=== PATIENT | male | born 1980 | race Caucasian/White ===

== ENCOUNTER 2018-03-16 17:55 | Emergency (ER) | payer OTHER ==
[2018-03-16] MEDS ORDERED: IBUPROFEN 200 MG TAB PO ONE (18:11)
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
[2018-03-16] MEDS ORDERED: TDAP ADULT 0.5 ML INJ (BOOSTRIX) IM ONE (18:17)
[2018-03-16 19:53] VITALS: BP 157/101
== END 2018-03-16 19:56 | disposition home or self-care (01) ==
LOC: CED 17:55
PROC: 0HQMXZZ Repair Right Foot Skin, External Approach (ICD-10-PCS; principal; 2018-03-16)
DX: S91.311A Laceration without foreign body, right foot, initial encounter (principal); W20.8XXA Other cause of strike by thrown, projected or falling object, initial encounter; F17.200 Nicotine dependence, unspecified, uncomplicated; Z23 Encounter for immunization
CPT/HCPCS: 73630-PO; L4386